=== PATIENT | female | born 1960 | race Caucasian/White ===

== ENCOUNTER 2019-03-28 10:35 | Emergency (ER) | payer OTHER ==
[2019-03-28 10:44] VITALS: BP 154/83
--- NOTE | 2019-03-28 11:59 | ED Physician Documentation ---
PD HPI URI - Stated complaint Stated Complaint: PAINFUL TO SWALLOW - Chief complaint Chief Complaint: Heent - History obtained from History obtained from: Patient - History of Present Illness Timing - onset: Other (58-year-old woman, relatively healthy [place]. She was exposed to strep throat about 8 days ago by her grandchildren. She became sick about 7 days ago with bilateral sinus pressure radiating to both ears and sore throat. There is a mild cough and low-grade fevers.) Review of Systems Ten Systems: 10 systems reviewed and negative Constitutional: reports: Fever, Fatigue Nose: reports: Rhinorrhea / runny nose, Congestion, Sinus pressure / pain. denies: Epistaxis Throat: reports: Sore throat Respiratory: reports: Cough. denies: Dyspnea GI: denies: Abdominal Pain PD PAST MEDICAL HISTORY - Present Medications Home Medications: Ambulatory Orders Medication Instructions Recorded Confirmed Amoxicillin 500 mg PO TID #30 capsule 03/28/19 Atorvastatin [Lipitor] 5 mg 03/28/19 Lisinopril 40 mg DAILY 03/28/19 03/28/19 Mometasone Furoate [Nasonex] 1 spray NS BID #1 spray.pump 03/28/19 - Allergies Allergies/Adverse Reactions: Allergies Allergy/AdvReac Type Severity Reaction Status Date / Time erythromycin base Allergy Mild Rash Verified 03/28/19 10:40 - Social History Does the pt smoke?: No Smoking Status: Never smoker PD ED PE NORMAL - Vitals Vital signs reviewed: Yes - General General: Alert and oriented X 3, No acute distress - HEENT HEENT: Ears normal, Other (Bilateral maxillary sinus tenderness, oropharynx appears relatively normal) - Neck Neck: Supple, no meningeal sign, No bony TTP - Cardiac Cardiac: RRR, No murmur - Respiratory Respiratory: No respiratory distress, Clear bilaterally - Abdomen Abdomen: Non tender - Derm Derm: No rash - Neuro Neuro: Alert and oriented X 3, Normal speech Results - Vitals Vitals: Vital Signs - 24 hr 03/28/19 10:42 Temperature 36.5 C Heart Rate 88 Respiratory 18 Rate Blood Pressure 154/83 H O2 Saturation 98 Oxygen O2 Source Room air - Labs Labs: Laboratory Tests 03/28/19 10:47 Group A Strep Rapid Negative PD MEDICAL DECISION MAKING - ED course ED course: Given the time course she does fit IDSA criteria for antibiotic trial for rhinosinusitis. Departure - Departure Disposition: Home, Self Care Clinical Impression: Sinusitis Condition: Good Record reviewed to determine appropriate education?: Yes Health Concerns: uri Plan of Treatment: abx/flonase Care Goals: improve Assessment: as above Instructions: ED Sinusitis Abx Tx Prescriptions: Amoxicillin 500 mg PO TID #30 capsule Mometasone Furoate [Nasonex] 1 spray NS BID #1 spray.pump Comments: Call your doctor to arrange a follow-up appointment, make the next available appointment. In the interim, return anytime if worse or if new symptoms develop. Your blood pressure was elevated today on check into the emergency department. This does not mean that you have hypertension, it is a common phenomenon to come to the emergency department and have elevated blood pressure. I recommend that you see your primary care physician within the week to have it rechecked when you are feeling better.
== END 2019-03-28 12:04 | disposition home or self-care (01) ==
LOC: ED 10:35
DX: J32.9 Chronic sinusitis, unspecified (principal); R03.0 Elevated blood-pressure reading, without diagnosis of hypertension
CPT/HCPCS: 87070; 87430; 99283; 99284